=== PATIENT | female | born 1935 | race Caucasian/White ===

== ENCOUNTER → 2018-11-29 09:26 | Outpatient (CLI) | payer MEDICARE, BC | END | disposition home or self-care (01) | LOC: D.CT 09:26 | PROVIDERS: ATTEND Internal Medicine Interventional Cardiology | DX: I65.23 Occlusion and stenosis of bilateral carotid arteries (principal); I70.213 Atherosclerosis of native arteries of extremities with intermittent claudication, bilateral legs ==

== ENCOUNTER → 2018-12-02 08:45 | Outpatient (CLI) | payer MEDICARE, BC | END | disposition home or self-care (01) | LOC: D.CT 08:45 | PROVIDERS: ATTEND Internal Medicine Interventional Cardiology | DX: I65.23 Occlusion and stenosis of bilateral carotid arteries (principal); I70.213 Atherosclerosis of native arteries of extremities with intermittent claudication, bilateral legs; I73.9 Peripheral vascular disease, unspecified ==

== ENCOUNTER 2019-05-15 06:47 | Emergency (ER) | payer MEDICARE, BC ==
[~2019-05-15] VITALS: Ht 162.6 cm; Wt 78.2 kg
[2019-05-15 06:52] VITALS: Ht 162.6 cm; Wt 78.2 kg
[2019-05-15] MEDS ORDERED: DIPHENHIST25 MG PO (06:54)
[2019-05-15] MEDS ORDERED: TENORMIN25 MG PO (06:54)
[2019-05-15] MEDS ORDERED: FLUTICASONE PRO16 GM NASAL (06:55)
[2019-05-15] MEDS ORDERED: COZAAR100 MG PO (06:55)
[2019-05-15] MEDS ORDERED: DONEPEZIL HCL5 MG PO (06:55)
[2019-05-15] MEDS ORDERED: FISH OIL 1,0001 CA1 PO (06:55)
[2019-05-15] MEDS ORDERED: KRILL OIL 1,001 EAC1 PO (06:55)
[2019-05-15] MEDS ORDERED: LOVASTATIN40 MG PO (06:56)
[2019-05-15] MEDS ORDERED: MOBIC7.5 MG PO (06:56)
[2019-05-15] MEDS ORDERED: FOLIC ACID1 MG PO (06:57)
[2019-05-15] MEDS ORDERED: OSTEO BI-FLEX1 EAC1 PO (06:57)
[2019-05-15] MEDS ORDERED: OMEPRAZOLE40 MG PO (06:57)
[2019-05-15] MEDS ORDERED: MULTI-DAY VITAM1 TAB PO (06:57)
[2019-05-15] MEDS ORDERED: VITAMIN E1000 UNI1 PO (06:58)
[2019-05-15] MEDS ORDERED: OXYBUTYNIN CHLOR5 M1 PO (06:58)
[2019-05-15] MEDS ORDERED: EFFEXOR100 MG PO (06:58)
[2019-05-15] MEDS ORDERED: TYLENOL W/CODEI1 TAB PO (06:59)
[2019-05-15] MEDS ORDERED: MELATONIN10 M1 PO (06:59)
[2019-05-15] MEDS ORDERED: ADVIL200 MG PO (06:59)
[2019-05-15] MEDS ORDERED: ATARAX 25 MG TA25 MG PO (07:00)
[2019-05-15] MEDS ORDERED: ULTRAM50 MG PO (07:00)
[2019-05-15 07:37] LABS: APPEARANCE SL CLDY (CLEAR); BACTERIA FEW /hpf (NEGATIVE); BILIRUBIN NEGATIVE (NEGATIVE); COLOR YELLOW (YELLOW); GLUCOSE NEGATIVE (NEGATIVE); KETONE NEGATIVE (NEGATIVE); MUCUS <1+ /lpf (NONE SEEN); NITRITE NEGATIVE (NEGATIVE); PROTEIN NEGATIVE (NEGATIVE); RED CELLS - URINE 0-5 /hpf (0-5); SPECIFIC GRAVITY 1.015 (1.005-1.020); UROBILINOGEN NORMAL (NORMAL); WHITE CELLS - URINE 0-5 /hpf (NEGATIVE)
[2019-05-15] MEDS ORDERED: OMNICEF300 MG PO (08:42)
[2019-05-15 09:21] VITALS: BP 132/78
== END 2019-05-15 09:11 | disposition home or self-care (01) ==
LOC: D.ER 06:47
PROVIDERS: Family Medicine
DX: N39.0 Urinary tract infection, site not specified (principal); W19.XXXA Unspecified fall, initial encounter; I10 Essential (primary) hypertension; E78.5 Hyperlipidemia, unspecified; K21.9 Gastro-esophageal reflux disease without esophagitis

== ENCOUNTER 2019-07-20 15:03 | Inpatient (IN) | payer MEDICARE, BC ==
[~2019-07-20] VITALS: Ht 162.6 cm; Wt 81.9 kg
[~2019-07-20 15:03] MED LIST: ADVIL200 MG PO; ATARAX 25 MG TA25 MG PO; COZAAR100 MG PO; DIPHENHIST25 MG PO; DONEPEZIL HCL5 MG PO; EFFEXOR100 MG PO; FISH OIL 1,0001 CA1 PO; FLUTICASONE PRO16 GM NASAL; FOLIC ACID1 MG PO; KRILL OIL 1,001 EAC1 PO; LOVASTATIN40 MG PO; MELATONIN10 M1 PO; MOBIC7.5 MG PO; MULTI-DAY VITAM1 TAB PO; OMEPRAZOLE40 MG PO; OMNICEF300 MG PO; OSTEO BI-FLEX1 EAC1 PO; OXYBUTYNIN CHLOR5 M1 PO; TENORMIN25 MG PO; TYLENOL W/CODEI1 TAB PO; ULTRAM50 MG PO; VITAMIN E1000 UNI1 PO
[2019-07-20 15:34] LABS: BASOPHILS 0.1 % (0-2); EOSINOPHILS 1.2 % (0-7); HEMATOCRIT 35.5 % (36.0-48.0); HEMOGLOBIN 9.7 g/dL (12-16); IMMATURE GRANULOCYTES 0.3 % (0-5); LYMPHOCYTES 17.9 % (15-50); MCH 22.2 pg (26.0-34.0); MCHC 27.3 g/dL (31.0-37.0); MCV 81.2 fL (80.0-100.0); MONOCYTES 10.9 % (2-11); NEUTROPHILS 69.6 % (40-80); PLATELET COUNT 285 10x3/uL (130-400); RBC 4.37 10x6/uL (4.00-5.40); RDW 17.2 % (11.5-14.5); WBC 7.6 10x3/uL (4.8-10.8)
[2019-07-20 15:43] LABS: APTT 26.8 SECONDS (22.8-39.4); INR 1.12 (0.85-1.17); PROTIME 14.3 SECONDS (11.6-15.0)
[2019-07-20 15:47] LABS: CALC OSMOLALITY 296 mosm/kg (275-300); CALCIUM 8.8 mg/dL (8.5-10.1); CARBON DIOXIDE 33.3 mmol/L (21.0-32.0); CHLORIDE - SERUM 108 mmol/L (98-107); CREATININE - SERUM 1.1 mg/dL (0.6-1.3); GLUCOSE 90 mg/dL (74-106); POTASSIUM - SERUM 4.3 mmol/L (3.5-5.1); SODIUM 146 mmol/L (136-145); UREA NITROGEN 29 mg/dL (7-18); eGFR NON AFRICAN AMERICAN 50 mL/min (90-120)
[2019-07-20 16:01] LABS: ALBUMIN 2.9 g/dL (3.4-5.0); ALKALINE PHOSPHATASE 51 U/L (30-120); ALT (SGPT) 21 U/L (10-68); BILIRUBIN - TOTAL 0.43 mg/dL (0.2-1.3); CKMB 3.3 U/L (0.0-3.6); CREATINE KINASE 63 UL (21-215); PROTEIN - SERUM 6.6 g/dL (6.4-8.2); TROPONIN-I 0.033 ng/mL (0.000-0.060)
[2019-07-20 16:06] VITALS: BP 190/85
[2019-07-20 17:36] VITALS: BP 152/61; BMI 29.2
[2019-07-20 18:20] LABS: BILIRUBIN NEGATIVE (NEGATIVE); GLUCOSE NEGATIVE (NEGATIVE); KETONE NEGATIVE (NEGATIVE); NITRITE NEGATIVE (NEGATIVE); UROBILINOGEN NORMAL (NORMAL)
[2019-07-21] VITALS: BP 151/70
[2019-07-21] MEDS ORDERED: GABAPENTIN100 MG PO (01:54)
[2019-07-21] MEDS ORDERED: TESSALON PERLE100 MG PO (01:55)
[2019-07-21] MEDS ORDERED: ZYRTEC10 MG PO (01:56)
[2019-07-21] MEDS ORDERED: MUCINEX DM ER1 EAC1 PO (01:56)
[2019-07-21] MEDS ORDERED: TYLENOL #4 W/CO1 TAB PO (01:57)
[2019-07-21 04:00] VITALS: BP 146/52
[2019-07-21 04:58] LABS: BASOPHILS 0.1 % (0-2); EOSINOPHILS 1.5 % (0-7); HEMATOCRIT 33.6 % (36.0-48.0); HEMOGLOBIN 9.2 g/dL (12-16); LYMPHOCYTES 19.2 % (15-50); MCH 22.1 pg (26.0-34.0); MCHC 27.4 g/dL (31.0-37.0); MCV 80.6 fL (80.0-100.0); MEAN PLATELET VOLUME 9.1 fL (7.4-10.4); MONOCYTES 12.9 % (2-11); NEUTROPHILS 66.3 % (40-80); PLATELET COUNT 260 10x3/uL (130-400); RBC 4.17 10x6/uL (4.00-5.40); RDW 17.7 % (11.5-14.5); WBC 7.6 10x3/uL (4.8-10.8)
[2019-07-21 05:09] LABS: % SATURATION 3 % (15-55); IRON 15 ug/dl (35-150); TOTAL IRON BIND CAPACITY 386 ug/dl (260-445); UNSAT IRON BIND CAPACITY 371 ug/dl (150-375)
[2019-07-21 05:33] LABS: ANION GAP 8.9 mmol/L (8-16); CALCIUM 8.5 mg/dL (8.5-10.1); CHOL - HDL RATIO 3.2 ratio (2.3-4.1); CREATININE - SERUM 1.1 mg/dL (0.6-1.3); LDL-HDL RATIO 1.7 ratio (1.5-3.5); MAGNESIUM - SERUM 1.8 mg/dL (1.8-2.4); PHOSPHOROUS 4.9 mg/dL (2.5-4.9); POTASSIUM - SERUM 3.9 mmol/L (3.5-5.1)
[2019-07-21 09:29] VITALS: BP 149/60
[2019-07-21 12:22] VITALS: Ht 162.6 cm; Wt 81.9 kg
[2019-07-21 13:51] VITALS: BP 147/56
[2019-07-21 17:52] VITALS: BP 170/84
--- NOTE | 2019-07-21 19:03 | MORECARE ---
CASE MANAGEMENT DISCHARGE SUMMARY PATIENT: ADÁN SUAREZ UNIT: [id number] ADM DATE: 07/20/19 AGE: 84 : 37 SEX: F ROOM/BED: D.2202 AUTHOR: ELVER TURPIN PHYSICIAN: REFERRING PHYSICIAN: LIZ MCKENNA MD DATE OF SERVICE: 07/21/19 Discharge Plan Patient Name: ADÁN SUAREZ [facility] [facility] 1935 Planned Disposition: Anticipated Discharge Date: Discharge Date: Expected LOS: Initial Reviewer: [email or web address] Initial Review Date: 07/20/2019 Generated: 07/21/19 8:02 pm DCPIA - Discharge Planning Initial Assessment Updated by [email or web address]: Angelia Hernandez on 07/21/19 7:01 pm * Is the patient Alert and Oriented? Yes * How many steps to enter\exit or inside your home? * PCP DUPREE * Pharmacy [facility] * Preadmission Environment Assisted Living * Facility Name [facility] * ADLs Independent * Equipment Walker * List name and contact numbers for known caregivers / representatives who currently or will assist patient after discharge: ELIU CHOPRA - SON - [phone] DENNIS LUBIN -DAUGHTER - [phone] * Verbal permission to speak to the caregivers and representatives has been obtained from the patient. Yes * Additional services required to return to the preadmission environment? No * Can the patient safely return to the preadmission environment? Yes * Has this patient been hospitalized within the prior 30 days at any hospital? No Patient Name: ADÁN SUAREZ Page 41215 at 1903 All edits/amendments must be made on the electronic document DICTATION DATE: 07/21/191901 BRASS INSTRUMENT REPAIR TECHNICIAN: DEE 07/21/191901 RPT#: [id number] DC DATE: STATUS: ADM IN [facility] [address] [place] [address] END OF REPORT
--- NOTE | 2019-07-21 19:34 | MORECARE ---
CASE MANAGEMENT DISCHARGE SUMMARY PATIENT: ADÁN SUAREZ UNIT: [id number] ADM DATE: 07/20/19 AGE: 84 : 37 SEX: F ROOM/BED: D.2202 AUTHOR: DYANA,DOC PHYSICIAN: REFERRING PHYSICIAN: LIZ MCKENNA MD DATE OF SERVICE: 07/21/19 Discharge Plan Patient Name: ADÁN SUAREZ Facility: [facility]:[place] : 1935 Planned Disposition: Anticipated Discharge Date: Discharge Date: Expected LOS: Initial Reviewer: [email or web address] Initial Review Date: 07/20/2019 Generated: 07/21/19 8:34 pm Comments DCP- Discharge Planning Updated by [email or web address]: Angelia Hernandez on 07/21/19 6:[address] Patient Name: ADÁN SUAREZ Admission Status: ER Accout number: [id number] Admission Date: 07-20-2019 : 1935 Admission Diagnosis: Attending: LIZ MCKENNA Current LOS: 1 Anticipated DC Date: Planned Disposition: Primary Insurance: MEDICARE A & B Discharge Planning Comments: CM met with patient to complete initial dc planning assessment. CM educated patient on the CM role and verbal consent given by patient to complete assessment. Patient lives at [facility] assisted living. At discharge patient plans to return back to [facility] and feels this is a safe discharge. CM discussed availability of home health, rehab services, and medical equipment. Patient denied known discharge needs at this time. Patient isn't accepting to inpatient rehab at this time but states she needs someone to work with her daily CM will continue to follow and will assist as needed with dc plans/needs. Paramedic: Angelia Hernandez DCPIA - Discharge Planning Initial Assessment Updated by [email or web address]: Angelia Hernandez on 07/21/19 7:01 pm * Is the patient Alert and Oriented? Yes * How many steps to enter\exit or inside your home? * PCP DUPREE * Pharmacy [facility] * Preadmission Environment Assisted Living * Facility Name [facility] * ADLs Independent * Equipment Walker * List name and contact numbers for known caregivers / representatives who currently or will assist patient after discharge: ELIU CHOPRA - SON - [phone] DENNIS HO - [phone] * Verbal permission to speak to the caregivers and representatives has been obtained from the patient. Yes * Additional services required to return to the preadmission environment? No * Can the patient safely return to the preadmission environment? Yes * Has this patient been hospitalized within the prior 30 days at any hospital? No Last DP export: 07/21/19 6:03 p Patient Name: ADÁN SUAREZ Page [phone] at 1934 All edits/amendments must be made on the electronic document DICTATION DATE: 07/21/191933 REAL ESTATE ACCOUNTANT: DEE 07/21/191933 RPT#: [id number] DC DATE: STATUS: ADM IN [facility] [address] [place] [address] END OF REPORT
[2019-07-21 20:00] VITALS: BP 118/42
[2019-07-22] VITALS: BP 163/49
[2019-07-22 04:00] VITALS: BP 130/70
[2019-07-22 06:45] LABS: BASOPHILS 0.1 % (0-2); EOSINOPHILS 1.5 % (0-7); IMMATURE GRANULOCYTES 0.1 % (0-5); LYMPHOCYTES 17.2 % (15-50); MCH 21.7 pg (26.0-34.0); MCHC 27.3 g/dL (31.0-37.0); MCV 79.7 fL (80.0-100.0); MEAN PLATELET VOLUME 8.9 fL (7.4-10.4); MONOCYTES 13.4 % (2-11); NEUTROPHILS 67.7 % (40-80); PLATELET COUNT 244 10x3/uL (130-400); RBC 4.14 10x6/uL (4.00-5.40); RDW 17.5 % (11.5-14.5); WBC 8.1 10x3/uL (4.8-10.8)
[2019-07-22 07:06] LABS: ANION GAP 7.8 mmol/L (8-16); CALCIUM 8.2 mg/dL (8.5-10.1); CARBON DIOXIDE 38.7 mmol/L (21.0-32.0); CREATININE - SERUM 0.9 mg/dL (0.6-1.3); MAGNESIUM - SERUM 1.6 mg/dL (1.8-2.4); PHOSPHOROUS 3.9 mg/dL (2.5-4.9); POTASSIUM - SERUM 3.5 mmol/L (3.5-5.1)
[2019-07-22 08:24] VITALS: BP 140/56
[2019-07-22 12:54] VITALS: BP 139/66
[2019-07-22 16:47] VITALS: BP 91/58
[2019-07-22 20:32] VITALS: BP 143/67
[2019-07-23 03:53] VITALS: BP 148/68
[2019-07-23 05:57] LABS: BASOPHILS 0.1 % (0-2); EOSINOPHILS 2.8 % (0-7); HEMATOCRIT 36.1 % (36.0-48.0); HEMOGLOBIN 9.7 g/dL (12-16); IMMATURE GRANULOCYTES 0.2 % (0-5); LYMPHOCYTES 14.3 % (15-50); MCH 21.7 pg (26.0-34.0); MCHC 26.9 g/dL (31.0-37.0); MCV 80.8 fL (80.0-100.0); MEAN PLATELET VOLUME 9.5 fL (7.4-10.4); MONOCYTES 12.2 % (2-11); NEUTROPHILS 70.4 % (40-80); PLATELET COUNT 283 10x3/uL (130-400); RBC 4.47 10x6/uL (4.00-5.40); RDW 17.5 % (11.5-14.5); WBC 8.3 10x3/uL (4.8-10.8)
[2019-07-23 06:11] LABS: ANION GAP 7.5 mmol/L (8-16); CALCIUM 8.4 mg/dL (8.5-10.1); CREATININE - SERUM 0.9 mg/dL (0.6-1.3); MAGNESIUM - SERUM 1.5 mg/dL (1.8-2.4); PHOSPHOROUS 3.4 mg/dL (2.5-4.9)
[2019-07-23 06:16] LABS: CARBON DIOXIDE 41.5 mmol/L (21.0-32.0)
[2019-07-23 08:33] VITALS: BP 164/69
[2019-07-23] MEDS ORDERED: LEVAQUIN750 MG PO (08:36)
[2019-07-23] MEDS ORDERED: PLAVIX75 MG PO (08:37)
--- NOTE | 2019-07-23 17:43 | EC ---
PATIENT:ADÁN SUAREZ DATE OF SERVICE: 07/20/19 SEX: F MEDICAL RECORD: [id number] DATE OF : 39 LOCATION:D.MS [address] AGE OF PATIENT: 84 ADMISSION DATE: 07/20/19 REFERRING PHYSICIAN: INTERPRETING PHYSICIAN: LIANNA HYDE MD ECHOCARDIOGRAM REPORT ECHO CHARGES 4 ECHO COMPLETE Date: 07/22/19 CLINICAL DIAGNOSIS: HTN/SOB/FLUID OVERLAD/ ISCHEMIC CVA ECHOCARDIOGRAPHIC MEASUREMENTS (adult normal given) AC root (d.<3.7cm) 3.0 cm LV Septum d (<1.2 cm> 1.2 cm Valve Excursion 1.8 cm LV Septum (systole) 1.6 cm Left Atria (s.<4.0cm> 4.3 cm LVPW d(<1.2cm) 1.3 cm RV (d.<2.3cm) 2.5 cm LVPW (sytole) 1.9 cm LV diastole(<5.6CM) 5.5 cm MV E-F(>70mm/sec) cm LV systole 3.4 cm LVOT Diameter 1.9 cm MV exc.(>10mm) cm Est.ejection fraction (50-75%) % DOPPLER: LVIT cm/sec A 65.0 cm/sec E 124 cm/sec LA cm/sec RVSP 58.0 mmHg LVOT 94.0 cm/sec AOP1/2T m/s Asc. Ao 183 cm/sec RVOT 62.0 cm/sec RA cm/sec PA 98.0 cm/sec AV Gradient Peak 13.4 mmHg AV Mean 7.2 mmHg AV Area 1.2 cm MV Gradient Peak 7.1 mmHg MV Mean 2.1 mmHg MV Area cm COMMENTS: Leather Scraper: June MORRIS [place] Lumber Cutter: 4 Dr. Hyde TAPE# PACS Pericardial Effusion N DATE OF SERVICE: 07/22/2019 PROCEDURE: Echocardiogram. FINDINGS: Left ventricle shows mild left ventricular hypertrophy, which is concentric. The ejection fraction is preserved at 55%. Left atrium is mildly dilated. Mitral valve shows normal structure with moderate regurgitation. Aortic valve is normal. ECHOCARDIOGRAM REPORT [id number] ADÁN SUAREZ Tricuspid valve has moderate tricuspid regurgitation. There is mildly elevated right ventricular systolic pressures at 58 mmHg. Right ventricle, normal size and normal function. Right atrium is mildly enlarged. Pulmonic valve is grossly normal. Pericardium is normal. IMPRESSION: The patient has evidence of mild hypertensive heart disease. The patient has moderate tricuspid and mitral regurgitation. No evidence of significant thrombus. TRANSINT:[id number] Voice Confirmation ID: [id number] DOCUMENT ID: [id number] LIANNA HYDE MD at 1743 CC: [id number] DICTATION DATE: 07/23/[address] MANAGER: 07/23/19 1332 DIS IN 07/23/19 [id number] [place] [address]
--- NOTE | 2019-07-24 09:15 | MORECARE ---
CASE MANAGEMENT DISCHARGE SUMMARY PATIENT: ADÁN SUAREZ UNIT: [id number] ADM DATE: 07/20/19 AGE: 84 : 37 SEX: F ROOM/BED: D.2202 AUTHOR: DYANA,DOC PHYSICIAN: REFERRING PHYSICIAN: LIZ MCKENNA MD DATE OF SERVICE: 07/24/19 Discharge Plan Patient Name: ADÁN SUAREZ Facility: [facility]:[place] : 1935 Planned Disposition: Anticipated Discharge Date: Discharge Date: 07/23/2019 Expected LOS: Initial Reviewer: [email or web address] Initial Review Date: 07/20/2019 Generated: 07/24/19 10:14 am Comments DCP- Discharge Planning Updated by [id number]: Angelia Hernandez on 07/21/19 6:[address] Patient Name: ADÁN SUAREZ Admission Status: ER Accout number: [id number] Admission Date: 07-20-2019 : 1935 Admission Diagnosis: Attending: LIZ MCKENNA Current LOS: 1 Anticipated DC Date: Planned Disposition: Primary Insurance: MEDICARE A & B Discharge Planning Comments: CM met with patient to complete initial dc planning assessment. CM educated patient on the CM role and verbal consent given by patient to complete assessment. Patient lives at [facility] assisted living. At discharge patient plans to return back to [facility] and feels this is a safe discharge. CM discussed availability of home health, rehab services, and medical equipment. Patient denied known discharge needs at this time. Patient isn't accepting to inpatient rehab at this time but states she needs someone to work with her daily CM will continue to follow and will assist as needed with dc plans/needs. Database Marketing Manager: Angelia Hernandez DCPIA - Discharge Planning Initial Assessment Updated by [email or web address]: Angelia Hernandez on 07/21/19 7:01 pm * Is the patient Alert and Oriented? Yes * How many steps to enter\exit or inside your home? * PCP DUPREE * Pharmacy [facility] * Preadmission Environment Assisted Living * Facility Name [facility] * ADLs Independent * Equipment Walker * List name and contact numbers for known caregivers / representatives who currently or will assist patient after discharge: ELIU CHOPRA - SON - [phone] DENNIS HO - [phone] * Verbal permission to speak to the caregivers and representatives has been obtained from the patient. Yes * Additional services required to return to the preadmission environment? No * Can the patient safely return to the preadmission environment? Yes * Has this patient been hospitalized within the prior 30 days at any hospital? No Last DP export: 07/21/19 6:34 p Patient Name: ADÁN SUAREZ Page [id number] at 0915 All edits/amendments must be made on the electronic document DICTATION DATE: 07/24/19913 CEMENTER MACHINE JOINER: DEE 07/24/19913 RPT#: [id number] DC DATE:07/23/19 STATUS: DIS IN [facility] [address] [place] [address] END OF REPORT
== END 2019-07-23 13:30 | DRG 177 ==
LOC: D.ER 15:03 → D.MS 16:11
PROVIDERS: Emergency Medicine; ADMIT Internal Medicine Nephrology; ATTEND Internal Medicine Nephrology
DX: J69.0 Pneumonitis due to inhalation of food and vomit (principal); I63.9 Cerebral infarction, unspecified; G93.41 Metabolic encephalopathy; N17.9 Acute kidney failure, unspecified; E87.0 Hyperosmolality and hypernatremia; F17.203 Nicotine dependence unspecified, with withdrawal; D64.9 Anemia, unspecified; I10 Essential (primary) hypertension; E78.5 Hyperlipidemia, unspecified; K21.9 Gastro-esophageal reflux disease without esophagitis; F03.90 Unspecified dementia, unspecified severity, without behavioral disturbance, psychotic disturbance, mood disturbance, and anxiety; G89.29 Other chronic pain; M54.9 Dorsalgia, unspecified

== ENCOUNTER 2019-07-23 14:10 | Inpatient (IN) | payer MEDICARE, BC ==
[~2019-07-23] VITALS: Ht 162.6 cm; Wt 81.6 kg
[~2019-07-23 14:10] MED LIST changes: +GABAPENTIN100 MG PO; +LEVAQUIN750 MG PO; +MUCINEX DM ER1 EAC1 PO; +PLAVIX75 MG PO; +TESSALON PERLE100 MG PO; +TYLENOL #4 W/CO1 TAB PO; +ZYRTEC10 MG PO
[2019-07-23 14:41] VITALS: BP 125/55; BMI 30.9
--- NOTE | 2019-07-23 17:28 | NUR ---
SITTING IN WC IN ROOM TALKING ON PHONE TO BROTHER. IS NOT HAPPY MORE PEOPLE HAS NOT BEEN IN HER ROOM SINCE ADMISSION. TRIED TO EXPLAIN TO PT SHE HAD BEEN SEEN BY STAFF BUT WE WERE NOT ABLE TO STAY WITH HER ALL THE TIME
--- NOTE | 2019-07-23 18:50 | NUR ---
BEDSIDE REPORT COMPLETE. PT SITTING UP IN W/C AT BEDSIDE. ALERT AND ORIENTED X4. DENIES ANY NEEDS OR PAIN. RIGHT FOREARM IV PATENT NO REDNESS OR SWELLING AT SITE. DRESSING C/D/I. 3L O2 ORDERED PT REFUSES TO WEAR AT THIS TIME. BUE BRUISING. LEFT SIDE FACIAL DROOPING. CALL LIGHT AND WATER WITHIN REACH. FALL PRECAUTIONS IN PLACE. WILL CONTINUE TO MONITOR
[2019-07-23 20:00] VITALS: BP 141/60
--- NOTE | 2019-07-24 00:45 | NUR ---
PT LYING IN BED SUPINE. HOB ELEVATED. CONTINUES ON 3L VIA NC. CALL LIGHT WITHIN REACH. BED ALARM ON. CPOC
--- NOTE | 2019-07-24 04:19 | NUR ---
PT LYING IN BED EYES CLOSED. HOB ELEVATED. CALL LIGHT AND WATER WITHIN REACH. BED ALARM ON. CPOC
[2019-07-24 05:47] LABS: BASOPHILS 0.1 % (0-2); EOSINOPHILS 1.8 % (0-7); HEMATOCRIT 36.3 % (36.0-48.0); HEMOGLOBIN 9.6 g/dL (12-16); IMMATURE GRANULOCYTES 0.2 % (0-5); LYMPHOCYTES 17.8 % (15-50); MCH 21.4 pg (26.0-34.0); MCHC 26.4 g/dL (31.0-37.0); MEAN PLATELET VOLUME 9.4 fL (7.4-10.4); MONOCYTES 12.2 % (2-11); NEUTROPHILS 67.9 % (40-80); PLATELET COUNT 270 10x3/uL (130-400); RBC 4.48 10x6/uL (4.00-5.40); RDW 17.3 % (11.5-14.5); WBC 8.4 10x3/uL (4.8-10.8)
[2019-07-24 05:48] LABS: CALCIUM 8.7 mg/dL (8.5-10.1); CREATININE - SERUM 0.8 mg/dL (0.6-1.3)
[2019-07-24 05:58] LABS: ANION GAP 3.4 mmol/L (8-16); POTASSIUM - SERUM 3.5 mmol/L (3.5-5.1)
[2019-07-24 05:59] LABS: CARBON DIOXIDE 42.1 mmol/L (21.0-32.0)
--- NOTE | 2019-07-24 05:59 | NUR ---
MAHESH FROM LAB CALLED CRITICAL CO2 42.1. CALLED BACK AND VERIFIED.
[2019-07-24 08:20] VITALS: BP 148/64
[2019-07-24 13:21] VITALS: Ht 162.6 cm; Wt 81.6 kg
--- NOTE | 2019-07-24 19:30 | NUR ---
PT IS RESTING IN BED WITH EYES OPEN. ALERT AND ORIENTED X 3. DENIES ACUTE PAIN OR DISCOMFORT AT THIS TIME. NO NEED VOICED. NO SOB NOTED. RFA SALINE LOCK INTACT. SR'S ARE UP X 2 IN BED. CALL LIGHT AND BEDSIDE TABLE ARE WITHIN EASY REACH.
[2019-07-24 19:49] VITALS: BP 140/57
--- NOTE | 2019-07-24 21:49 | NUR ---
PT IS RESTING IN BED WITH EYES OPEN. NO NEEDS VOICED.
--- NOTE | 2019-07-25 02:46 | NUR ---
I have reviewed this patient and I concur with the Shift Assessment completed by the Licensed Practical Nurse today this shift.
--- NOTE | 2019-07-25 07:33 | NUR ---
I have reviewed this patient and I concur with the Shift Assessment completed by the Licensed Practical Nurse today this shift.
[2019-07-25 08:00] VITALS: BP 128/50
--- NOTE | 2019-07-25 15:16 | NUR ---
PATIENT ADMITTED TO REHAB FROM ACUTE FLOOR. PATIENT LIVES AT THE [facility]. HER PCP IS DR. DUPREE AND DME AT HOME IS A WALKER. DISCHARGE PLANS ARE FOR HER TO RETURN TO HER HOME. WILL CONTINUE TO FOLLOW WITH PATIENT.
--- NOTE | 2019-07-25 16:34 | NUR ---
RESTING WITH EYES CLOSED. RESP EVEN AND UNLABORED WITH 02 ON PER N/C AT 3L/M. NO APPARENT PROBLEMS OR NEEDS NOTED. SIDERAILS UP X 2, CALL LIGHT IN REACH AND BED IN LOW LOCKED POSITION. WILL CONTINUE POC
--- NOTE | 2019-07-25 19:10 | NUR ---
AWAKE AND ALERT. RESTING IN BED WITH RESPIRAITONS UNLABORED. O2/3L ON PER NASAL CANNULA. RIGHT FOREARM SALINE LOCK INTACT WITH NO SIGNS OF INFILTRATION. NOTED SLIGHT DROOPING TO LEFT SIDE OF MOUTH. SPEECH SLIGHTLY SLUREED. ORIENTED AND MOVES EXTREMITIES ON COMMAND. NO ACUTE DISTRESS NOTED. CALL LIGHT IN REACH.
[2019-07-25 19:33] VITALS: BP 131/57
--- NOTE | 2019-07-25 22:55 | NUR ---
RESTING IN BED WITH EYES CLOSED AND RESPIRATIONS UNLABORED. NO DISTRESS NOTED. CALL LIGHT IN REACH.
--- NOTE | 2019-07-26 02:06 | NUR ---
CONTINUES SLEEPING WITH RESPIRATIONS UNLABORED. NO DISTRESS NOTED.
--- NOTE | 2019-07-26 05:09 | NUR ---
ASSISTED TO BATHROOM AND BACK TO BED. RESPIRATIONS UNLABORED. NO DISTRESS NOTED. NO ACUTE CHANGES IN CONDITION THIS SHIFT.
--- NOTE | 2019-07-26 06:19 | NUR ---
NOTED COUGHING AND C/O CHEST CONGESTION. COARSE LUNG SOUNDS BILATERALLY. CHEST X RAY ORDERED. WILL CONTINUE TO MONITOR.
[2019-07-26 07:35] VITALS: BP 137/48
--- NOTE | 2019-07-26 09:15 | NUR ---
PT AM MEDS ADMINSITERED. PT MARCIAL NEEDS. WCTM.
--- NOTE | 2019-07-26 13:50 | NUR ---
CARE TEAM MEETING: PATIENT IS NEW TO UNIT AND WILL BE RA AT NEXT MEETING. WILL CONTINUE TO FOLLOW WITH PATIENT.
--- NOTE | 2019-07-26 18:38 | NUR ---
BEDSIDE REPORT COMPLETE. ASSISTED PT TO RESTROOM WITH MIN ASSIST. ALERT AND ORIENTED X4. DENIES ANY OTHER NEEDS OR PAIN. INSTRUCTED PT TO USES NURSE CALL CORD WHEN FINISHED. PT VERBALIZED UNDERSTANDING. CPOC
--- NOTE | 2019-07-26 18:43 | NUR ---
ASSISTED PT BACK TO BED WITH SBA. RIGHT FOREARM SL WITHOUT REDNESS OR SWELLING. DRESSING C/D/I. CONTINUES ON 3L VIA NC. CALL LIGHT AND WATER WITHIN REACH. BED ALARM ON. CPOC
[2019-07-26 21:30] VITALS: BP 128/52
--- NOTE | 2019-07-26 23:14 | NUR ---
PT LYING IN BED SUPINE EYES CLOSED RESTING COMFORTABLY. HOB ELEVATED. CONTINUES ON 3L VIA NC. RR EVEN AND UNLABORED. CALL LIGHT WITHIN REACH. BED ALARM ON. CPOC
--- NOTE | 2019-07-27 03:14 | NUR ---
PT LYING IN BED EYES CLOSED RESTING COMFORTABLY. HOB ELEVATED. RR EVEN AND UNLABORED. CONTINUES ON 3L VIA NC. CALL LIGHT WITHIN REACH. BED ALARM ON. CPOC
[2019-07-27 07:58] VITALS: BP 160/63
--- NOTE | 2019-07-27 08:25 | NUR ---
PT AM MEDS ADMINISTERED. PT DENIES NEEDS. WCTM.
--- NOTE | 2019-07-27 12:26 | NUR ---
Nutrition Follow-up: Overall good PO intake per chart review. Diet: Cardiac, Mech Soft PO intake: 75-100% No new wt; last wt: 180# (07/23) Last BM: 07/26 per chart No new labs Meds reviewed -Encourage PO intake and honor food preferences within diet restrictions. -Offer nutrition supplements if avg PO intake <50%. -Monitor wt. -RD following.
--- NOTE | 2019-07-27 14:43 | NUR ---
IV TO RT FA DC'D CATH TIP IN TACT.
--- NOTE | 2019-07-27 18:45 | NUR ---
BEDSIDE REPORT COMPLETE. PT SITTING UP IN BED AWAKE AND ALERT. DENIES ANY NEEDS OR PAIN. CONTINUES ON 3L VIA NC. CALL LIGHT WITHIN REACH. BED ALARM ON. CPOC
[2019-07-27 21:00] VITALS: BP 158/66
--- NOTE | 2019-07-28 00:19 | NUR ---
PT LYING IN BED EYES CLOSED RESTING. HOB ELEVATED. RR EVEN AND UNLABORED. CALL LIGHT WITHIN REACH. BED ALARM ON. CPOC
--- NOTE | 2019-07-28 03:05 | NUR ---
ASSISTED PT TO RESTROOM AND BACK TO BED WITH SBA. DENIES ANY OTHER NEEDS OR PAIN. CALL LIGHT WITHIN REACH. BED ALARM ON . CPOC
[2019-07-28 06:10] LABS: HEMATOCRIT 35.5 % (36.0-48.0); HEMOGLOBIN 9.8 g/dL (12-16); LYMPHOCYTES 22.5 % (15-50); MCH 21.7 pg (26.0-34.0); MCHC 27.6 g/dL (31.0-37.0); MCV 78.5 fL (80.0-100.0); MEAN PLATELET VOLUME 9.3 fL (7.4-10.4); NEUTROPHILS 68.5 % (40-80); PLATELET COUNT 233 10x3/uL (130-400); RBC 4.52 10x6/uL (4.00-5.40); RDW 17.1 % (11.5-14.5); WBC 7.7 10x3/uL (4.8-10.8)
[2019-07-28 06:16] LABS: ANION GAP 5.8 mmol/L (8-16); CALCIUM 8.4 mg/dL (8.5-10.1); CARBON DIOXIDE 37.9 mmol/L (21.0-32.0); CREATININE - SERUM 0.9 mg/dL (0.6-1.3); POTASSIUM - SERUM 3.7 mmol/L (3.5-5.1)
[2019-07-28 07:38] VITALS: BP 162/63
--- NOTE | 2019-07-28 08:00 | NUR ---
PT RESTING IN BED WITH EYES OPEN CALL LIGHT IN REACH EATING BREAKFAST TOLERATING WELL
--- NOTE | 2019-07-28 15:09 | NUR ---
PT RESTING IN BED WITH EYES OPEN CALL LIGHT IN REACH WILL MONITER
--- NOTE | 2019-07-28 20:04 | NUR ---
AWAKE AND ALERT. ASSISTED TO BATHROOM AND BACK TO BED. RESPIRAITONS UNLABORED. NO ACUTE DISTRESS NOTED. NOTED SLURRED SPEECH AND MILD LEFT SIDED WEAKNESS. MOVES ALL EXTREMITIES ON COMMAND. MINIMAL ASSIST FOR TRANSFERS.
[2019-07-28 21:45] VITALS: BP 151/73
--- NOTE | 2019-07-29 02:07 | NUR ---
CONTINUES SLEEPING WITH NO DISTRESS NOTED. CALL LIGHT IN REACH.
--- NOTE | 2019-07-29 04:49 | NUR ---
QUIET HOURS. NO ACUTE CHANGES IN CONDITION THIS SHIFT. RESTING IN BED WITH NO DISTRESS NOTED. CALL LIGHT IN REACH.
[2019-07-29 08:00] VITALS: BP 148/58
--- NOTE | 2019-07-29 09:34 | NUR ---
PT AM MEDS ADMINISTERED. PT DENIES NEEDS. WCTM.
--- NOTE | 2019-07-29 18:27 | NUR ---
PT RESTING IN BED, DENIES NEEDS. WCTM.
[2019-07-29 19:36] VITALS: BP 155/65
--- NOTE | 2019-07-29 19:43 | NUR ---
AWAKE AND ALERT. ASSISTED TO BATHROOM AND BACK TO BED. HAD A LARGE LOOSE BM. RESPIRATIONS UNLABORED. SPEECH SLIGHTLY SLURRED. MOVES ALL EXTREMITIES ON COMMAND. SLIGHT FACIAL DROOPING ON LEFT SIDE OF FACE. NO ACUTE DISTRESS NOTED.
--- NOTE | 2019-07-29 23:20 | NUR ---
REPOSITIONED FOR COMFORT. O2/3L ON PER NASAL CANNULA. NO ACUTE DISTRESS NOTED.
--- NOTE | 2019-07-30 01:06 | NUR ---
ASSISTED TO BATHROOM AND BACK TO BED. O2/2L ON PER NASAL CANNULA. COUGHING AT INTERVALS. C/O BEING HOT. FAN AND COOL DRINK PROVIDED. NOW RESTING WITH FAN ON HER AND SHE STATES SHE FEELS BETTER.
--- NOTE | 2019-07-30 04:30 | NUR ---
PATIENT C/O SHORTNESS OF BREATH. DIMINISHED LUNG SOUNDS. O2 SATURATRION 88% ON O2/3L NC. ASSISTED TO SIT UP AND DEEP BREATHE AND COUGH. INCENTIVE SPIROMETER DONE. RESPIRATORY THERAPIST MARIANO CALLED AND ASSESSED PATIENT. HE STATED SHE IS MOVING AIR WELL. O2 SATURATION WENT UP TO 96%. HEAD OF BED RAISED AND O2 ON. WILL CONTINUE TO MONITOR.
--- NOTE | 2019-07-30 05:17 | NUR ---
RESTING WITH EYES CLOSED AND RESPIRATIONS UNLABORED ON O2/3L PER NASAL CANNULA. O2 SATURATION 96%.
[2019-07-30 08:00] VITALS: BP 176/76
--- NOTE | 2019-07-30 09:29 | NUR ---
PT AM MEDS ADMINISTERED. PT DENIES NEEDS. WCTM.
--- NOTE | 2019-07-30 20:06 | NUR ---
ASSISTED TO BATHROOM AND BACK TO BED. IV ANTIBIOTICS STARTED ORDERED. O2/3L ON PER NASAL CANNULA. HEAD OF BED ELEVATED. CONTINUES TO HAVE SLURRED SPEECH AND MILD LEFT SIDED WEAKNESS. CALL LIGHT IN REACH.
[2019-07-30 20:33] VITALS: BP 171/81
--- NOTE | 2019-07-31 02:13 | NUR ---
AWAKE AND SITTING ON SIDE OF BED. O2 ON. NOT SLEPT MUCH. UP TO BATHROOM NUMEROUS TIMES. WILL CONTINUE TO MONITOR.
--- NOTE | 2019-07-31 04:30 | NUR ---
CXR DONE. ABG'S DONE. RESPIRATORY THERPIST HERE AND INCREASED O2 TO 5L/NC AND ADDED WATER BOTTLE TO OXYGEN. WILL CONTINUE TO MONITOR.
--- NOTE | 2019-07-31 05:17 | NUR ---
RESTING WITH O2/5L ON PER NASAL CANNULA. CALL LIGHT IN REACH.
[2019-07-31 06:16] LABS: BASOPHILS 0.1 % (0-2); HEMATOCRIT 36.4 % (36.0-48.0); HEMOGLOBIN 9.6 g/dL (12-16); IMMATURE GRANULOCYTES 0.2 % (0-5); LYMPHOCYTES 17.2 % (15-50); MCHC 26.4 g/dL (31.0-37.0); MCV 79.5 fL (80.0-100.0); MEAN PLATELET VOLUME 9.6 fL (7.4-10.4); MONOCYTES 8.7 % (2-11); NEUTROPHILS 72.8 % (40-80); PLATELET COUNT 224 10x3/uL (130-400); RBC 4.58 10x6/uL (4.00-5.40); RDW 17.6 % (11.5-14.5); WBC 8.1 10x3/uL (4.8-10.8)
[2019-07-31 06:32] LABS: ANION GAP 5.2 mmol/L (8-16); CALCIUM 8.8 mg/dL (8.5-10.1); CREATININE - SERUM 0.8 mg/dL (0.6-1.3); POTASSIUM - SERUM 4.2 mmol/L (3.5-5.1)
[2019-07-31 07:54] VITALS: BP 166/66
--- NOTE | 2019-07-31 08:00 | NUR ---
PATIENT IS ALERT/ORIENT. SLURRED SPEECH. CALL LIGHT WITHIN REACH. VOICES NO NEEDS AT THIS TIME. WILL CONTINUE WITH PLAN OF CARE
--- NOTE | 2019-07-31 13:36 | NUR ---
PATIENT IN REHAB ROOM. WORKING WITH PHYSICAL THERAPIST. DENIES ANY PAIN/DISC AT THIS TIME.
--- NOTE | 2019-07-31 18:50 | NUR ---
BEDSIDE REPORT COMPLETE. PT LYING IN BED EYES CLOSED RESTING. HOB ELEVATED. CONTINUES ON 5L VIA NC. HUMIDIFIED AIR. EASILY AROUSED WITH VERBAL STIMULI. DENIES ANY NEEDS OR PAIN. RIGHT FOREARM IV WITHOUT REDNESS OR SWELLING. PT STATES SITE IS TENDER. WILL CONTINUE TO MONITOR. DRESSING C/D/I. CALL LIGHT AND NECTAR THICKENED WATER WITHIN REACH. BED ALARM ON. CPOC
[2019-07-31 21:00] VITALS: BP 136/72
--- NOTE | 2019-08-01 01:13 | NUR ---
PT LYING IN BED EYES CLOSED RESTING COMFORTABLY. CONTINUES ON 5L VIA NC. RR EVEN AND UNLABORED. CALL LIGHT WITHIN REACH. BED ALARM ON. CPOC
--- NOTE | 2019-08-01 04:00 | NUR ---
ASSISTED TO RESTROOM AND BACK TO BED WITH MIN ASSIST. DENIES ANY OTHER NEEDS OR PAIN. CONTINUES ON 5L VIA NC. CALL LIGHT AND WATER WITHIN REACH. BED ALARM ON. [facility]
[2019-08-01 09:56] VITALS: BP 161/68
--- NOTE | 2019-08-01 10:25 | NUR ---
PT AM MEDS ADMINISTERED. PT DENIES NEEDS. WCTM.
--- NOTE | 2019-08-01 12:59 | NUR ---
Nutrition follow-up: Diet: Regular mechanical soft PO intake ~60% average of last 12 meals Labs reviewed; SOB at times +BM No new wt; last wt: 180# PO intake fair to good at meals. RDN following.
--- NOTE | 2019-08-01 14:45 | NUR ---
SPOKE WITH PATIENTS FAMILY AND ELIU CHOPRA IS PATIENTS POA. HE WOULD LIKE A REFERRAL TO [facility] IF PATIENT IS UNABLE TO RETURN TO THE [facility]. WILL CALL MR. CHOPRA AT TEAM CONFERENCE.
--- NOTE | 2019-08-01 18:50 | NUR ---
BEDSIDE REPORT COMPLETE. PT LYING IN BED AWAKE AND ALERT. DENIES ANY NEEDS OR PAIN. CONTINUES ON 5L VIA NC. RIGHT HAND IV WITHOUT REDNESS OR SWELLING. DRESSING C/D/I. CALL LIGHT AND WATER WITHIN REACH. BED ALARM ON. CPOC
[2019-08-01 20:45] VITALS: BP 163/61
--- NOTE | 2019-08-02 00:13 | NUR ---
PT LYING IN BED EYES CLOSED RESTING. HOB ELEVATED. CONTINUES ON 5L VIA NC. RR EVEN AND UNLABORED. CALL LIGHT WITHIN REACH. BED ALARM ON. CPOC
--- NOTE | 2019-08-02 01:41 | NUR ---
ASSISTED PT TO RESTROOM WITH MIN ASSIST. PT INSTRUCTED TO USE NURSE PULL CORD IN BATHROOM WHEN FINISHED. PT VERBALIZED UNDERSTANDING.
--- NOTE | 2019-08-02 03:30 | NUR ---
ASSISTED PT TO RESTROOM AND BACK TO BED WITH MIN ASSIST. CONTINUES ON 5L VIA NC. CALL LIGHT AND HYDRATION WITHIN REACH. BED ALARM ON. CPOC
--- NOTE | 2019-08-02 06:39 | NUR ---
PT SITTING UP IN BED EYES CLOSED RESTING. HOB ELEVATED. RR EVEN AND UNLABORED. CALL LIGHT WITHIN REACH. BED ALARM ON. CPOC
[2019-08-02 07:10] LABS: BASOPHILS 0.1 % (0-2); EOSINOPHILS 2.5 % (0-7); HEMATOCRIT 33.8 % (36.0-48.0); IMMATURE GRANULOCYTES 0.1 % (0-5); LYMPHOCYTES 15.9 % (15-50); MCH 21.1 pg (26.0-34.0); MCHC 26.6 g/dL (31.0-37.0); MCV 79.2 fL (80.0-100.0); MEAN PLATELET VOLUME 9.5 fL (7.4-10.4); MONOCYTES 10.6 % (2-11); NEUTROPHILS 70.8 % (40-80); PLATELET COUNT 226 10x3/uL (130-400); RBC 4.27 10x6/uL (4.00-5.40); WBC 7.5 10x3/uL (4.8-10.8)
[2019-08-02 07:25] LABS: ANION GAP 9.2 mmol/L (8-16); CALCIUM 8.5 mg/dL (8.5-10.1); CARBON DIOXIDE 34.9 mmol/L (21.0-32.0); CREATININE - SERUM 0.8 mg/dL (0.6-1.3); POTASSIUM - SERUM 4.1 mmol/L (3.5-5.1)
[2019-08-02 08:56] VITALS: BP 152/54
--- NOTE | 2019-08-02 11:22 | NUR ---
UPON ARRIVAL THIS MORNING PATIENT WAS SLEEPING. BREATHING NORMALLY. SHE WAS SAT UP IN A CHAIR TO EAT HER BREAKFAST. PATIENT IS ALERT AND ORIENTED. SHE WENT TO THE GYM FOR PHYSICAL THERAPY. DENIES NEEDS.
--- NOTE | 2019-08-02 12:55 | NUR ---
PATIENT ASKED TO GET BACK IN BED AFTER EATING HER LUNCH. DENIES NEEDS. NO S/S OF DISTRESS. WILL CONTINUE TO MONITOR. CRISTOPHER
--- NOTE | 2019-08-02 14:06 | NUR ---
PATIENT LYING IN BED RESTING. BREATHING EQUAL AND UNLABORED. THIS MORNING DR. CABRAL WANTED HER WEANED DOWN FROM HER OXYGEN LEVEL OF 5 AND TO KEEP O2 >96%. PATIENT PUT ON 2L PER DR. CABRAL. O2 87% ON 2 LITERS. OXYGEN INCREASED TO 3L. 30 MINS LATER, O2 READS 92%. OXYGEN INCREASED TO 3.2 LITERS AND READING 93%. OXYGEN CURRENTLY AT 4LITERS. WILL CONTINUE TO MONITOR OXYGEN SATURATION. KDAJALIL
--- NOTE | 2019-08-02 15:29 | NUR ---
CARE TEAM MEETING: DID PHONE CONFERENCE WITH PATIENT FAMILY. FAMILY REQUEST THAT A REFERRAL BE MADE TO [facility]. AT THIS TIME PATIENT IS UNABLE TO SAFELY RETURN TO HER HOME. WILL CONTINUE TO FOLLOW WITH PATIENT.
[2019-08-02 19:46] VITALS: BP 179/72
--- NOTE | 2019-08-02 19:52 | NUR ---
AWAKE AND ALERT. RESTING IN BED WITH NO RESPIRATORY DISTRESS NOTED. O2/4L ON PER NASAL CANNULA. MILD SLURRED SPEECH. NO DISTRESS NOTED.
--- NOTE | 2019-08-03 01:40 | NUR ---
SLEEPING WITH NO DISTRESS NOTED.
--- NOTE | 2019-08-03 06:19 | NUR ---
HASNT SLEPT A LOT TONIGHT. UP AND DOWN TO BATHROOM NUMEROUS TIMES. O2/4L ON PER NASAL CANNULA. NO ACUTE DISTRESS NOTED.
--- NOTE | 2019-08-03 08:00 | NUR ---
PATIENT IS ALERT/ORIENT. CALL LIGHT WITHIN REACH. VOICES NO NEEDS AT THIS TIME. WILL CONTINUE WITH PLAN OF CARE
[2019-08-03 08:18] VITALS: BP 161/60
--- NOTE | 2019-08-03 09:30 | NUR ---
SALINE LOCK OUT. NEW SALINE LOCK INSERTED IN LEFT WRIST
--- NOTE | 2019-08-03 10:10 | NUR ---
PATIENT HELPED WITH SHOWER FROM NURSE
--- NOTE | 2019-08-03 11:00 | NUR ---
I have reviewed this patient and I concur with the Shift Assessment completed by the Licensed Practical Nurse today this shift.
--- NOTE | 2019-08-03 13:28 | NUR ---
PATIENT IS A MIN ASST FROM BED TO WHEELCHAIR. HAS STRESS INCON. WEARS BRIEFS
[2019-08-03 17:08] LABS: IMMUNOGLOBULIN E 65 IU/mL (6-495)
[2019-08-03 19:31] VITALS: BP 184/60
--- NOTE | 2019-08-03 19:37 | NUR ---
AWAKE AND ALERT. SITTING IN WHEELCHAIR IN ROOM EATING SNACK. RESPIRATIONS UNLABORED AT REST. O2/4L ON PER NASAL CANNULA. CALL LIGHT IN REACH.
--- NOTE | 2019-08-03 22:29 | NUR ---
IV SITE WAS INFILATRATED AT 2100 AND I ATTEMPTED TO RESTART IT. PATIENT SCREAMED AND JERKED HER ARM AND REFUSED TO LET ME RESTART IT. I DID EDUCATION ON IMPORTANCE OF ANTIBIOTICS AND SHE YELLED AND SAID "I DONT CARE ITS NOT WORTH THE PAIN." I LEFT HER ALONE ABOUT AN HOUR AND ANOTHER NURSE CAME IN AND PATIENT AGREED TO ALLOW HER TO RESTART IV. IV RESITED TO LEFT UPPER ARM WITH 24G IV CATH. ANTIBIOTICS INFUSING.
--- NOTE | 2019-08-04 01:10 | NUR ---
AWAKE AND WATCHING TV. RESPIRAITONS UNLABORED. SALINE LOCK TO LEFT UPPER ARM INTACT.
--- NOTE | 2019-08-04 04:58 | NUR ---
RESTING IN BED AFTER BEING ASSISTED TO BATHROOM. O2/4L ON PER NASAL CANNULA. SALINE LOCK TO LEFT UPPER ARM INTACT. NO ACUTE DISTRESS NOTED.
[2019-08-04 05:51] LABS: BASOPHILS 0.3 % (0-2); EOSINOPHILS 2.3 % (0-7); HEMATOCRIT 36.9 % (36.0-48.0); HEMOGLOBIN 9.9 g/dL (12-16); IMMATURE GRANULOCYTES 0.3 % (0-5); LYMPHOCYTES 12.6 % (15-50); MCH 21.1 pg (26.0-34.0); MCHC 26.8 g/dL (31.0-37.0); MCV 78.7 fL (80.0-100.0); MEAN PLATELET VOLUME 9.1 fL (7.4-10.4); MONOCYTES 7.6 % (2-11); NEUTROPHILS 76.9 % (40-80); PLATELET COUNT 250 10x3/uL (130-400); RBC 4.69 10x6/uL (4.00-5.40); RDW 18.2 % (11.5-14.5); WBC 9.1 10x3/uL (4.8-10.8)
[2019-08-04 06:00] LABS: CALCIUM 8.6 mg/dL (8.5-10.1); CARBON DIOXIDE 34.8 mmol/L (21.0-32.0); CREATININE - SERUM 0.8 mg/dL (0.6-1.3); POTASSIUM - SERUM 3.8 mmol/L (3.5-5.1)
[2019-08-04 08:00] VITALS: BP 187/74
--- NOTE | 2019-08-04 14:12 | RHP ---
PATIENT: ADÁN SUAREZ MEDICAL RECORD: [id number] ACCOUNT: [id number] [facility] ADMISSION DATE: 07/23/19 REHABILITATION HISTORY AND PHYSICAL EXAMINATION POST ADMISSION PHYSICIAN EXAMINATION ADMITTING DIAGNOSES: Acute ischemic lacunar infarct in the right posterior frontal lobe. HISTORY OF PRESENT ILLNESS: The patient is an 84-year-old female patient who resides at the [facility], has got a history of hypertension, dyslipidemia, dementia, depression, osteoarthritis, chronic back pain. Apparently, she was having some difficulty with speech prior to coming to the hospital. She additionally had a brief episode of nausea. She had left-sided facial droop and loss of her nasolabial folds with a smile on the left side. She was able to follow commands and had no deficits really in her extremities. Her speech was slurred, but understandable. She apparently continues to smoke. An MRI of her head was done. There was an acute ischemic lacunar infarct in the right posterior frontal lobe involving the glover radiata without evidence of hemorrhagic conversion. The patient was admitted to the acute hospital. The patient also had a little bit of elevation of D-dimer. Ultrasound of her extremities showed no evidence of DVT. She has been receiving OT, speech therapy, and physical therapy during her stay. She needs to be monitored closely for aspiration precautions. She has been seen by speech therapy. She has left-sided weakness, left-sided facial droop. She got some slurred speech, balance deficits, decreased activity tolerance, decreased range of motion, decreased strength, gait disturbance, limited safety awareness. She has got a risk for falls. She fatigues easily. She has got inability to care for self. These are all barriers to her discharge home at this time. She lives at the [facility] and was living in her own apartment, was completely independent with ADLs and mobility prior to this. She is currently set up for mod assist for ADLs and mod assist for mobility. She and her family would like her to return back to her apartment at the [facility] after a stay here in the rehabilitation. COMORBIDITIES: Include oropharyngeal dysphagia, dysarthric speech, acute metabolic encephalopathy, CVA, depression, anxiety, chronic back pain, tobacco use, nicotine dependence, hypertension, electrolyte abnormalities, pneumonia and anemia. PAST MEDICAL HISTORY: Significant for CVA, dyslipidemia, gastroesophageal reflux disease, depression, dementia, tobacco use, chronic back pain. PAST SURGICAL HISTORY: Includes back surgery. She had a hysterectomy, colon surgery, and shoulder surgery. ALLERGIES: No known drug allergies. CURRENT MEDICATIONS: Include Floranex 1 cap daily. She is on lisinopril 10 mg daily, clonidine 0.1 mg daily, Zithromax 500 daily, amlodipine 10 mg daily, Omnicef 300 mg b.i.d. She is on Brovana 15 mcg b.i.d., budesonide 0.5 mg b.i.d., low resistance sliding scale of insulin, and albuterol updrafts. HABITS: Does have a history of tobacco use. FAMILY HISTORY: Noncontributory. HISTORY AND PHYSICAL [id number] ADÁN SUAREZ SOCIAL HISTORY: The patient hopes to return back home to her [facility]. REVIEW OF SYSTEMS: GENERAL: Does complain of weakness, mainly on the left. HEENT: Denies cold, cough, or congestion. CARDIOVASCULAR: Denies chest pain. PHYSICAL EXAMINATION: VITAL SIGNS: Stable, afebrile. GENERAL: A morbidly obese female, in no distress upon exam. HEENT: Normocephalic and atraumatic. Mucosa moist. NECK: Supple. No lymphadenopathy. LUNGS: Clear in upper oliveros. No wheeze or rales. HEART: Regular rate and rhythm. No murmurs, rubs or gallops. ABDOMEN: Soft, benign, and nondistended. Positive bowel sounds times 4. EXTREMITIES: She does have noted weakness on her left side, but no clubbing, cyanosis or edema. NEUROLOGIC: Consistent with a CVA involving the right side of her head lab work has shown some mild elevations in her blood sugar. LABORATORY DATA: Her white count is 3.0, H&H of 11 and 35, and platelet count was noted to be 169. Her electrolytes are pending at this time other than sugars. ASSESSMENT: This is an 84-year-old female patient admitted to rehab with a working diagnosis an acute ischemic lacunar infarct involving the right posterior lobe. The patient has potential to make improvement. We instituted the following multidisciplinary therapies include, but not limited to physical, occupational, respiratory, speech, nutritional services, prosthetics and orthotics. Given her complex medical conditions and risks for more complications, rehabilitation services cannot be provided at a low level of care such as skilled nurse facility. PLAN: 1. Admit to [facility] for intensive inpatient therapy to include the following disciplines: A. Physical therapy to improve gait, all transfer skills and bed mobility to a modified independent level. B. Occupational therapy to improve activities of living. C. Case management to assist with discharge planning and placement options. D. Nutrition to assist with nutritional needs. E. Rehabilitation nursing to assist in monitoring the patient's underlying medical conditions and to assist with any type of bowel or bladder management. 2. The patient's current medication and medical care will be continued. 3. The patient will be placed on standard fall precautions. 4. The patient's estimated length of stay is approximately 7-10 days. 5. We will discuss this patient during care team staff meeting this week. TRANSINT:[id number] Voice Confirmation ID: [id number] DOCUMENT ID: [id number] TALIA notes whether there has been none or any medical/functional change since admission: - No change since preadmission screen. HISTORY AND PHYSICAL [id number] ADÁN SUAREZ attests patient continues to be appropriate for IRF: - Continues to be approprite. ABDIRAHMAN ZELAYA MD at 1412 CC: [id number] DICTATION DATE: 07/24/19 0858 ITINERANT TEACHER ASSISTANT: 07/24/19 0927 ADM IN [facility] [address] [place] [address]
--- NOTE | 2019-08-04 14:20 | NUR ---
REFERRAL HAS BEEN FAXED TO [facility] PER FAMILY REQUEST
--- NOTE | 2019-08-04 16:14 | NUR ---
PT RESTING IN BED WITH EYES OPEN CALL LIGHT IN REACH WILL MONITER
--- NOTE | 2019-08-04 17:45 | NUR ---
PT RESTING IN BED WITH EYES OPEN CALL LIGHT IN REACH WILL MONITER
--- NOTE | 2019-08-04 18:47 | NUR ---
BEDSIDE REPORT COMPLETE. PT SITTING UP IN BED ALERT AND ORIENTED X3. DENIES ANY NEEDS OR PAIN. CONTINUES ON 4L VIA NC. NO SIGNS OF ACUTE DISTRESS NOTED. LEFT FOREARM IV DC WITH CATH TIP INTACT D/T INFILTRATION. CALL LIGHT WITHIN REACH. BED ALARM ON. CPOC
[2019-08-04 20:46] VITALS: BP 150/71
--- NOTE | 2019-08-04 21:32 | NUR ---
PT REFUSED TO ALLOW RN TO RESITE IV, STATES THAT SHE RATHER FIND ALTERNATIVE TREATMENT HAS BEEN RESITED SEVERAL TIMES DURING HER ABX THERAPY.
--- NOTE | 2019-08-04 23:31 | NUR ---
PT LYING IN BED EYES CLOSED RESTING COMFORTABLY. HOB ELEVATED. RR EVEN AND UNLABORED. CONTINUES ON 4L VIA NC. CALL LIGHT WITHIN REACH. BED ALARM ON. CPOC
--- NOTE | 2019-08-05 03:00 | NUR ---
ASSISTED PT TO RESTROOM AND BACK TO BED WITH MIN ASSIST. DENIES ANY NEEDS OR PAIN. RR EVEN AND UNLABORED. CONTINUES ON 4L VIA NC. CALL LIGHT WITHIN REACH. BED ALARM ON. CPOC
[2019-08-05 08:00] VITALS: BP 160/74
--- NOTE | 2019-08-05 08:15 | NUR ---
PT SITTING UP IN WHEELCHAIR EATING BREAKFAST, DENIES NEEDS. WCTM.
--- NOTE | 2019-08-05 18:47 | NUR ---
BEDSIDE REPORT COMPLETE. PT LYING IN BED EYES CLOSED RESTING. HOB ELEVATED. CONTINUES ON 4L VIA NC. RR EVEN AND UNLABORED. CALL LIGHT AND WATER WITHIN REACH. BED ALARM ON. CPOC
[2019-08-05 19:42] VITALS: BP 167/69
--- NOTE | 2019-08-05 22:41 | NUR ---
PT SITTING UP IN BED WATCHING TV. DENIES ANY NEEDS OR PAIN. RR EVEN AND UNLABORED. CALL LIGHT AND WATER WITHIN REACH. BED ALARM ON. CPOC
--- NOTE | 2019-08-06 02:53 | NUR ---
PT LYING IN BED EYES CLOSED RESTING. HOB ELEVATED. RR EVEN AND UNLABORED. CONTINUES ON 4L VIA NC. CALL LIGHT WITHIN REACH. BED ALARM ON. CPOC
--- NOTE | 2019-08-06 03:27 | NUR ---
ASSISTED PT TO RESTROOM AND BACK TO BED WITH MIN ASSIST. CALL LIGHT AND WATER WITHIN REACH. BED ALARM ON. CPOC
[2019-08-06 15:45] VITALS: BP 149/63
[2019-08-06 19:50] VITALS: BP 137/92
--- NOTE | 2019-08-06 22:35 | NUR ---
INITIAL ROUNDS COMPLETED AT 1915 HRS. PT DENIED ANY DISCOMFORT. ASSESSMENT COMPLETED AT 1950 HRS. VSS. ALERT AND ORIENTED TO PERSON, PLACE AND TIME. FELIZ. O2 4LNC. LUNGS DIMINISHED IN BASES BILAT. SPEECH SLIGHTLY SLURRED. PT STATES UPPER R THIGH NUMB. BRUISES NOTED TO BILAT ARMS. TINY SCABS NOTED UNDER LOWER LIP. PM MEDS GIVEN. PT ASSISTED TO BR VIA W/C. VOIDED LARGE AMOUNT OF YELLOW URINE. BACK TO BED VIA W/C. PT WHEEZING AFTER EXERTION. PT CURRENTLY PLAYING ON PHONE. NO AUDIBLE WHEEZES NOTED. SR UP X2, CALL LIT WITHIN REACH, HOB UP AND BED ALARM ON.
--- NOTE | 2019-08-07 00:20 | NUR ---
RESTING WITH EYES CLOSED OM R SIDE. NO DISTRESS NOTED. CALL LIGHT WITHIN REACH.
--- NOTE | 2019-08-07 01:35 | NUR ---
ASSISTED PT TO BR AT 0120 HRS. VOIDED LARGE AMOUNT OF URINE AND HAD SMALL BM. ASSISTED BACK TO BED VIA W/C. PT SOB WITH ACTIVITY.
--- NOTE | 2019-08-07 02:10 | NUR ---
WATCHING TV. NO DISTRESS NOTED.
--- NOTE | 2019-08-07 04:51 | NUR ---
PT RESTING WITH EYES CLOSED. RESP EVEN AND REGULAR. SR UP X2, CALL LIGHT WITHIN REACH.
[2019-08-07 05:18] LABS: BASOPHILS 0.2 % (0-2); EOSINOPHILS 2.8 % (0-7); HEMOGLOBIN 9.6 g/dL (12-16); IMMATURE GRANULOCYTES 0.1 % (0-5); MCHC 26.7 g/dL (31.0-37.0); MCV 78.6 fL (80.0-100.0); MEAN PLATELET VOLUME 9.6 fL (7.4-10.4); MONOCYTES 7.8 % (2-11); NEUTROPHILS 67.1 % (40-80); PLATELET COUNT 288 10x3/uL (130-400); RBC 4.58 10x6/uL (4.00-5.40); RDW 18.5 % (11.5-14.5); WBC 8.2 10x3/uL (4.8-10.8)
[2019-08-07 05:26] LABS: ANION GAP 8.9 mmol/L (8-16); CALCIUM 8.6 mg/dL (8.5-10.1); CARBON DIOXIDE 35.3 mmol/L (21.0-32.0); CREATININE - SERUM 0.8 mg/dL (0.6-1.3); POTASSIUM - SERUM 4.2 mmol/L (3.5-5.1)
--- NOTE | 2019-08-07 06:21 | NUR ---
PT UP TO BATHROOM VIA W/C X4 DURING SHIFT. PT SOB WITH EXERTION. PT CURRENTLY SITTING ON SIDE OF BED. NO DISTRESS NOTED. WILL CONTINUE TO MONITOR.
--- NOTE | 2019-08-07 07:25 | NUR ---
RESTING POSITIONED ON BACK WITH EYES CLOSED. RESP EVEN AND UNLABORED WITH 02 ON PER N/C AT 4L/M. SIDERAILS UP X 2, CALL LIGHT IN REACH AND BED IN LOW, LOCKED POSITION. WILL CONTINUE POC.
[2019-08-07 08:10] VITALS: BP 186/66
--- NOTE | 2019-08-07 18:43 | NUR ---
BEDSIDE REPORT COMPLETE. PT SITTING UP IN BED WATCHING TV. ALERT AND ORIENTED X4. SLURRED SPEECH. CONTINUES ON 4L HUMIDIFIED VIA NC. DENIES ANY NEEDS OR PAIN. NO SIGNS OF ACUTE DISTRESS NOTED. CALL LIGHT AND WATER WITHIN REACH. BED ALARM ON. CPOC
[2019-08-07 20:11] VITALS: BP 169/49
--- NOTE | 2019-08-07 23:27 | NUR ---
PT LYING IN BED AWAKE AND ALERT. HOB ELEVATED. DENIES ANY NEEDS OR PAIN. NO SIGNS OF ACUTE DISTRESS NOTED. CALL LIGHT WITHIN REACH. BED ALARM ON. CPOC
--- NOTE | 2019-08-08 04:00 | NUR ---
PT LYING IN BED AWAKE AND ALERT. DENIES ANY NEEDS. C/O 2/10 ACHING PAIN IN RIGHT HIP/LEG. CALL LIGHT AND WATER WITHIN REACH. BED ALARM ON. CPOC
--- NOTE | 2019-08-08 06:40 | NUR ---
PT SITTING UP ON SIDE OF BED EATING SNACK. DENIES ANY OTHER NEEDS OR PAIN. RR EVEN AND UNLABORED. CALL LIGHT WITHIN REACH. BED ALARM ON. CPOC
[2019-08-08 08:57] VITALS: BP 109/91
--- NOTE | 2019-08-08 10:28 | NUR ---
PATIENT DISCHARGING TO [facility] VIA FACILITY VAN. NO HOME HEALTH OR DME NEEDED AT THIS TIME. AN APPOINTMENT WITH DR. DUPREE AND DR. WALL WILL BE MADE AT TIME OF DISCHARGE FROM FACILITY. DR. WESTFALL ORDER FAXED TO SNF REGARDING NEBULIZER AND O2. PATIENT CHOICE FORM AND IMFM FORMS SIGNED, EXPLAINED,ONE GIVEN TO PATIENT AND ONE FILED IN CHART. DISCHARGE INSTRUCTIONS FAXED TO PCP, SNF AND REVIEWED WITH PATIENT PER PRIMARY NURSE.
--- NOTE | 2019-08-08 14:40 | NUR ---
PT DISCHARGE INSTRUCTIONS REV'D AND PT STATES UNDERSTANDING. [facility]PL[facility] DEVELOPMENT DIRECTOR HERE TO RECEIVE PT. PT DISCHARGED.
== END 2019-08-08 14:41 | DRG 56 ==
LOC: D.REHAB 14:10
PROVIDERS: Internal Medicine Pulmonary Disease; ADMIT Emergency Medicine; ATTEND Emergency Medicine
DX: I69.30 Unspecified sequelae of cerebral infarction (principal); G93.41 Metabolic encephalopathy; J18.9 Pneumonia, unspecified organism; J96.01 Acute respiratory failure with hypoxia; J98.11 Atelectasis; J44.1 Chronic obstructive pulmonary disease with (acute) exacerbation; J44.0 Chronic obstructive pulmonary disease with (acute) lower respiratory infection; F17.203 Nicotine dependence unspecified, with withdrawal; R13.12 Dysphagia, oropharyngeal phase; R47.1 Dysarthria and anarthria; F17.200 Nicotine dependence, unspecified, uncomplicated; I10 Essential (primary) hypertension; E87.8 Other disorders of electrolyte and fluid balance, not elsewhere classified; F41.8 Other specified anxiety disorders; G89.29 Other chronic pain; E78.5 Hyperlipidemia, unspecified; I27.20 Pulmonary hypertension, unspecified; J30.9 Allergic rhinitis, unspecified; F03.90 Unspecified dementia, unspecified severity, without behavioral disturbance, psychotic disturbance, mood disturbance, and anxiety

== ENCOUNTER 2019-09-27 18:27 | Inpatient (IN) | payer MEDICARE, BC ==
[~2019-09-27] VITALS: Ht 162.6 cm; Wt 73.4 kg
[2019-09-27] MEDS ORDERED: BUMEX2 MG PO (18:40)
[2019-09-27] MEDS ORDERED: FERROUS SULFAT325 MG PO (18:42)
[2019-09-27] MEDS ORDERED: COZAAR100 MG PO (18:44)
[2019-09-27] MEDS ORDERED: NICODERM CQ1 EAC3 TOPICAL (18:45)
[2019-09-27] MEDS ORDERED: K-TAB10 MEQ PO (18:46)
[2019-09-27] MEDS ORDERED: EFFEXOR25 MG PO (18:48)
[2019-09-27] MEDS ORDERED: ASCORBIC ACID500 MG PO (18:49)
[2019-09-27] MEDS ORDERED: VITAMIN D1000 UNIT PO (18:50)
[2019-09-27] MEDS ORDERED: COLACE100 MG PO (18:52)
[2019-09-27] MEDS ORDERED: INDERAL 40 MG T40 MG PO (18:55)
[2019-09-27] MEDS ORDERED: ATIVAN0.5 MG PO (18:55)
[2019-09-27] MEDS ORDERED: GABAPENTIN100 MG PO (18:57)
--- NOTE | 2019-09-27 19:10 | NUR ---
TRAUMA BAND [id number]
--- NOTE | 2019-09-27 20:00 | NUR ---
C-COLLAR PLACED ON PT PER EDP ORDERS.
[2019-09-27 20:38] LABS: BASOPHILS 0.1 % (0-2); EOSINOPHILS 2.1 % (0-7); HEMATOCRIT 36.6 % (36.0-48.0); HEMOGLOBIN 9.8 g/dL (12-16); IMMATURE GRANULOCYTES 0.2 % (0-5); LYMPHOCYTES 16.8 % (15-50); MCH 20.7 pg (26.0-34.0); MCHC 26.8 g/dL (31.0-37.0); MCV 77.2 fL (80.0-100.0); MEAN PLATELET VOLUME 10.1 fL (7.4-10.4); MONOCYTES 7.6 % (2-11); NEUTROPHILS 73.2 % (40-80); RBC 4.74 10x6/uL (4.00-5.40); RDW 18.9 % (11.5-14.5); WBC 9.8 10x3/uL (4.8-10.8)
[2019-09-27 20:39] LABS: PLATELET COUNT 205 10x3/uL (130-400)
[2019-09-27 20:55] LABS: BILIRUBIN NEGATIVE (NEGATIVE); GLUCOSE NEGATIVE (NEGATIVE); KETONE NEGATIVE (NEGATIVE); NITRITE NEGATIVE (NEGATIVE); UROBILINOGEN NORMAL (NORMAL)
--- NOTE | 2019-09-27 20:55 | NUR ---
JUAN FROM [facility] AND BRACE AT PT'S BEDSIDE TO PLACE C COLLAR ON PT.
[2019-09-27 20:56] LABS: WHITE CELLS - URINE 0-5 /hpf (NEGATIVE)
[2019-09-27 20:57] LABS: BACTERIA FEW /hpf (NEGATIVE); EPITHELIAL CELLS 0-5 /hpf (0-5); RED CELLS - URINE OCC /hpf (0-5)
--- NOTE | 2019-09-27 21:13 | NUR ---
SPOKE WITH DEMETRIUS FROM [facility] PT IS FROM AND INFORMED HER OF PT CURRENT STATUS.
[2019-09-27 21:17] LABS: ALBUMIN 2.6 g/dL (3.4-5.0); ALKALINE PHOSPHATASE 37 U/L (30-120); ALT (SGPT) 14 U/L (10-68); BILIRUBIN - TOTAL 0.32 mg/dL (0.2-1.3); CALC OSMOLALITY 289 mosm/kg (275-300); CALCIUM 8.7 mg/dL (8.5-10.1); CHLORIDE - SERUM 103 mmol/L (98-107); CKMB 0.9 U/L (0.0-3.6); CREATINE KINASE 33 UL (21-215); CREATININE - SERUM 0.8 mg/dL (0.6-1.3); GLUCOSE 79 mg/dL (74-106); POTASSIUM - SERUM 3.3 mmol/L (3.5-5.1); PROTEIN - SERUM 5.9 g/dL (6.4-8.2); SODIUM 145 mmol/L (136-145); UREA NITROGEN 18 mg/dL (7-18); eGFR NON AFRICAN AMERICAN 73 mL/min (90-120)
[2019-09-27 21:23] LABS: TROPONIN-I < 0.017 ng/mL (0.000-0.060)
[2019-09-27] MEDS ORDERED: EFFEXOR100 MG PO (23:08)
[2019-09-27] MEDS ORDERED: NAPROSYN500 MG PO (23:09)
[2019-09-28] VITALS: BP 176/76
[2019-09-28 00:47] VITALS: BMI 29.7
[2019-09-28 04:00] VITALS: BP 167/71
--- NOTE | 2019-09-28 04:17 | NUR ---
I have reviewed this patient and I concur with the Shift Assessment completed by the Licensed Practical Nurse today this shift.
[2019-09-28 06:55] LABS: BASOPHILS 0.2 % (0-2); EOSINOPHILS 3.3 % (0-7); HEMATOCRIT 35.1 % (36.0-48.0); HEMOGLOBIN 9.4 g/dL (12-16); IMMATURE GRANULOCYTES 0.1 % (0-5); MCH 20.5 pg (26.0-34.0); MCHC 26.8 g/dL (31.0-37.0); MCV 76.5 fL (80.0-100.0); MONOCYTES 9.3 % (2-11); NEUTROPHILS 67.1 % (40-80); PLATELET COUNT 224 10x3/uL (130-400); RBC 4.59 10x6/uL (4.00-5.40); WBC 8.3 10x3/uL (4.8-10.8)
[2019-09-28 07:06] LABS: ALBUMIN 2.4 g/dL (3.4-5.0); ALKALINE PHOSPHATASE 37 U/L (30-120); ALT (SGPT) 14 U/L (10-68); BILIRUBIN - TOTAL 0.39 mg/dL (0.2-1.3); CALC OSMOLALITY 284 mosm/kg (275-300); CALCIUM 8.7 mg/dL (8.5-10.1); CHLORIDE - SERUM 103 mmol/L (98-107); CREATININE - SERUM 0.8 mg/dL (0.6-1.3); GLUCOSE 78 mg/dL (74-106); POTASSIUM - SERUM 3.2 mmol/L (3.5-5.1); PROTEIN - SERUM 6.3 g/dL (6.4-8.2); SODIUM 143 mmol/L (136-145); UREA NITROGEN 16 mg/dL (7-18); eGFR NON AFRICAN AMERICAN 73 mL/min (90-120)
[2019-09-28 07:14] LABS: CARBON DIOXIDE 40.6 mmol/L (21.0-32.0); TROPONIN-I < 0.017 ng/mL (0.000-0.060)
[2019-09-28 09:28] VITALS: BP 174/80
--- NOTE | 2019-09-28 10:00 | NUR ---
PATIENT SITTING ON SIDE OF BED EATING. CL IN REACH. BED ALARM ON. CO OF PAIN 7 OUT OF 10 ON PAIN SCALE. TREATED PER EMAR. WCTM
--- NOTE | 2019-09-28 10:26 | NUR ---
SPOKE WITH PT ABOUT SPEAKING TO DAUGHTER DENNIS. SPEAKING WITH HER DAUGHTER NOW. CL IN REACH. WCTM
[2019-09-28 10:38] VITALS: Ht 162.6 cm; Wt 73.4 kg
[2019-09-28 13:43] VITALS: BP 109/66
[2019-09-28 17:00] VITALS: BP 186/87
--- NOTE | 2019-09-28 17:00 | NUR ---
Domonique MARLEY LINE OUT MAN CALLED [facility] FOR [place] NECK BRACE. PATIENT HAS NOT RECIEVED YET.
--- NOTE | 2019-09-28 17:30 | NUR ---
JUAN WITH [facility] HERE TO FIX [place] NECK BRACE ON PATIENT. NO PAPERWORK AVAILABLE TO SIGN.
[2019-09-28 20:00] VITALS: BP 180/75
[2019-09-29] VITALS: BP 142/67
[2019-09-29 04:00] VITALS: BP 189/74
[2019-09-29 04:17] LABS: BASOPHILS 0.1 % (0-2); EOSINOPHILS 2.2 % (0-7); HEMATOCRIT 34.8 % (36.0-48.0); HEMOGLOBIN 9.1 g/dL (12-16); IMMATURE GRANULOCYTES 0.2 % (0-5); LYMPHOCYTES 16.9 % (15-50); MCH 20.2 pg (26.0-34.0); MCHC 26.1 g/dL (31.0-37.0); MCV 77.3 fL (80.0-100.0); MEAN PLATELET VOLUME 10.3 fL (7.4-10.4); NEUTROPHILS 72.6 % (40-80); PLATELET COUNT 242 10x3/uL (130-400); RDW 19.1 % (11.5-14.5); WBC 8.8 10x3/uL (4.8-10.8)
[2019-09-29 04:40] LABS: INR 1.04 (0.85-1.17); PROTIME 13.5 SECONDS (11.6-15.0)
[2019-09-29 04:55] LABS: ANION GAP 4.8 mmol/L (8-16); CALCIUM 8.9 mg/dL (8.5-10.1); CARBON DIOXIDE 38.9 mmol/L (21.0-32.0); CREATININE - SERUM 0.8 mg/dL (0.6-1.3); MAGNESIUM - SERUM 1.8 mg/dL (1.8-2.4); PHOSPHOROUS 3.8 mg/dL (2.5-4.9); POTASSIUM - SERUM 3.7 mmol/L (3.5-5.1)
--- NOTE | 2019-09-29 08:00 | NUR ---
AWAKE AND ORIENTED TO SELF ONLY. FALL PRECAUTIONS IN PLACE. CERVICAL COLLAR INTACT WITH GOOD ROM. INCONT OF BLADDER AT TIMES. IV LEFT F/A WITH NO S/S OF INFECTION/INFILTRATION. LUNGS CTA AND HRRR. ENCOURAGED TO USE CALL LIGHT FOR ASSSIT.
[2019-09-29 08:46] VITALS: BP 120/66
[2019-09-29 12:30] VITALS: BP 156/76
--- NOTE | 2019-09-29 15:13 | MORECARE ---
CASE MANAGEMENT DISCHARGE SUMMARY PATIENT: ADÁN SUAREZ UNIT: [id number] ADM DATE: 09/27/19 AGE: 84 : 37 SEX: F ROOM/BED: D.2201 AUTHOR: ELVER TURPIN PHYSICIAN: REFERRING PHYSICIAN: GOLDIE DUPREE MD DATE OF SERVICE: 09/29/19 Discharge Plan Patient Name: ADÁN SUAREZ [facility] [facility] 1935 Planned Disposition: [facility] Facility Anticipated Discharge Date: Discharge Date: Expected LOS: Initial Reviewer: [email or web address] Initial Review Date: 09/27/2019 Generated: 09/29/19 4:13 pm External Providers External Provider: [facility] Next Contact Date: Service Request Date: Service Type: Resolution: Reviewer: Comments: Patient Name: ADÁN SUAREZ Page 56911 at 1513 All edits/amendments must be made on the electronic document DICTATION DATE: 09/29/19 1513 REGISTRATION SPECIALIST: DEE 09/29/19 1513 RPT#: [id number] DC DATE: STATUS: ADM IN [facility] [address] [place] [address] END OF REPORT
--- NOTE | 2019-09-29 15:21 | MORECARE ---
CASE MANAGEMENT DISCHARGE SUMMARY PATIENT: ADÁN SUAREZ UNIT: [id number] ADM DATE: 09/27/19 AGE: 84 : 37 SEX: F ROOM/BED: D.2201 AUTHOR: ELVER TURPIN PHYSICIAN: REFERRING PHYSICIAN: GOLDIE DUPREE MD DATE OF SERVICE: 09/29/19 Discharge Plan Patient Name: ADÁN SUAREZ [facility] [facility] 1935 Planned Disposition: Penitentiary Facility Anticipated Discharge Date: Discharge Date: Expected LOS: Initial Reviewer: [email or web address] Initial Review Date: 09/27/2019 Generated: 09/29/19 4:21 pm Comments DCP- Discharge Planning Updated by [email or web address]: Rica Simons on 09/29/19 2:[address] IF PATIENT IS STABLE TO D/C [facility] WILL ACCEPT HER BACK OVER THE WEEKEND PER ANGELINE Nair DP export: 09/29/19 2:13 pm Patient Name: ADÁN SUAREZ Page [id number] at 1521 All edits/amendments must be made on the electronic document DICTATION DATE: 09/29/19 152 FIELD CONSULTANT: DEE 09/29/19 152 RPT#: [id number] DC DATE: STATUS: ADM IN [facility] [address] [place] [address] END OF REPORT
[2019-09-29 17:25] VITALS: BP 147/69
[2019-09-29 20:41] VITALS: BP 138/53
--- NOTE | 2019-09-30 02:16 | NUR ---
I have reviewed this patient and I concur with the Shift Assessment completed by the Licensed Practical Nurse today this shift.
[2019-09-30 04:00] VITALS: BP 198/75
[2019-09-30 07:17] LABS: CALC OSMOLALITY 287 mosm/kg (275-300); CALCIUM 8.9 mg/dL (8.5-10.1); CHLORIDE - SERUM 104 mmol/L (98-107); CREATININE - SERUM 0.6 mg/dL (0.6-1.3); GLUCOSE 85 mg/dL (74-106); MAGNESIUM - SERUM 1.9 mg/dL (1.8-2.4); PHOSPHOROUS 3.7 mg/dL (2.5-4.9); POTASSIUM - SERUM 4.1 mmol/L (3.5-5.1); SODIUM 144 mmol/L (136-145); UREA NITROGEN 17 mg/dL (7-18); eGFR NON AFRICAN AMERICAN > 90 mL/min (90-120)
--- NOTE | 2019-09-30 08:17 | NUR ---
resting in bed, no distress noted, cervical collar in place, cont to monitor pain and labs this am
[2019-09-30 08:45] LABS: BASOPHILS 0.1 % (0-2); EOSINOPHILS 2.2 % (0-7); HEMATOCRIT 35.3 % (36.0-48.0); HEMOGLOBIN 9.3 g/dL (12-16); IMMATURE GRANULOCYTES 0.2 % (0-5); LYMPHOCYTES 17.9 % (15-50); MCH 20.4 pg (26.0-34.0); MCHC 26.3 g/dL (31.0-37.0); MCV 77.2 fL (80.0-100.0); MEAN PLATELET VOLUME 10.1 fL (7.4-10.4); MONOCYTES 6.2 % (2-11); NEUTROPHILS 73.4 % (40-80); PLATELET COUNT 237 10x3/uL (130-400); RBC 4.57 10x6/uL (4.00-5.40); RDW 19.5 % (11.5-14.5); WBC 8.1 10x3/uL (4.8-10.8)
[2019-09-30 09:31] VITALS: BP 153/60
[2019-09-30 13:37] VITALS: BP 151/66
[2019-09-30 17:25] VITALS: BP 123/63
[2019-09-30 20:00] VITALS: BP 150/78
[2019-10-01 01:08] VITALS: BP 148/80
--- NOTE | 2019-10-01 01:34 | NUR ---
I have reviewed this patient and I concur with the Shift Assessment completed by the Licensed Practical Nurse today this shift.
[2019-10-01 04:00] VITALS: BP 152/85
[2019-10-01 06:11] LABS: HEMATOCRIT 36.3 % (36.0-48.0); HEMOGLOBIN 9.7 g/dL (12-16); MCH 20.7 pg (26.0-34.0); MCHC 26.7 g/dL (31.0-37.0); MCV 77.6 fL (80.0-100.0); MEAN PLATELET VOLUME 10.1 fL (7.4-10.4); PLATELET COUNT 239 10x3/uL (130-400); RBC 4.68 10x6/uL (4.00-5.40); RDW 20.1 % (11.5-14.5); WBC 8.1 10x3/uL (4.8-10.8)
[2019-10-01 06:27] LABS: CALC OSMOLALITY 287 mosm/kg (275-300); CHLORIDE - SERUM 103 mmol/L (98-107); CREATININE - SERUM 0.7 mg/dL (0.6-1.3); GLUCOSE 97 mg/dL (74-106); MAGNESIUM - SERUM 1.9 mg/dL (1.8-2.4); PHOSPHOROUS 3.5 mg/dL (2.5-4.9); POTASSIUM - SERUM 3.5 mmol/L (3.5-5.1); SODIUM 144 mmol/L (136-145); UREA NITROGEN 14 mg/dL (7-18); eGFR NON AFRICAN AMERICAN 85 mL/min (90-120)
[2019-10-01 06:36] LABS: CARBON DIOXIDE 40.1 mmol/L (21.0-32.0)
--- NOTE | 2019-10-01 08:17 | NUR ---
RESTING IN BED, NO DISTRESS NOTED, EYES CLOSED, CERVICAL COLLAR IN PLACE, CONT TO MONITOR SAFETY, DC ORDERS ON CHART
[2019-10-01 08:28] VITALS: BP 178/98
[2019-10-01 09:19] LABS: LYMPHOCYTES 16 % (15-50); MONOCYTES 6 % (2-11); NEUTROPHILS 78 % (40-80); PLATELET ESTIMATE NORMAL
[2019-10-01 09:20] LABS: ROULEAUX OCC
--- NOTE | 2019-10-01 11:33 | NUR ---
REPORT CALLED TO WILLY AT [facility], PT TO WEAR CERVICAL COLLAR FOR 12 WEEKS, THEY WILL CALL ME WITH A KNIT TUBING DYER TIME
--- NOTE | 2019-10-01 11:46 | NUR ---
DC IV, TIP INTACT
--- NOTE | 2019-10-01 13:00 | NUR ---
TAKEN FROM HOSPITAL PER W/C WITH TRANSPORTER
--- NOTE | 2019-10-01 14:09 | MORECARE ---
CASE MANAGEMENT DISCHARGE SUMMARY PATIENT: ADÁN SUAREZ UNIT: [id number] ADM DATE: 09/27/19 AGE: 84 : 37 SEX: F ROOM/BED: D.2201 AUTHOR: ELVER TURPIN PHYSICIAN: REFERRING PHYSICIAN: GOLDIE DUPREE MD DATE OF SERVICE: 10/01/19 Discharge Plan Patient Name: ADÁN SUAREZ [facility] [facility] 1935 Planned Disposition: Jail Facility Anticipated Discharge Date: Discharge Date: 10/01/2019 Expected LOS: Initial Reviewer: [email or web address] Initial Review Date: 09/27/2019 Generated: 10/01/19 3:08 pm Comments DCP- Discharge Planning Updated by [email or web address]: Maria Luz Nettles on 10/01/19 1:[address] Patient discharged to a skilled bed at [facility], via their van. DCP- Discharge Planning Updated by [email or web address]: Rica Simons on 09/29/19 2:[address] IF PATIENT IS STABLE TO D/C [facility] WILL ACCEPT HER BACK OVER THE WEEKEND PER ANGELINE CAMACHO export: 09/29/19 2:21 pm Patient Name: ADÁN SUAREZ Page [id number] at 1409 All edits/amendments must be made on the electronic document DICTATION DATE: 10/01/19 1408 ELECTROMECHANICAL EQUIPMENT TESTER: DEE 10/01/19 1408 RPT#: [id number] DC DATE:10/01/19 STATUS: DIS IN [facility] [address] [place] [address] END OF REPORT
--- NOTE | 2019-10-01 14:24 | MORECARE ---
CASE MANAGEMENT DISCHARGE SUMMARY PATIENT: ADÁN SUAREZ UNIT: [id number] ADM DATE: 09/27/19 AGE: 84 : 37 SEX: F ROOM/BED: D.2201 AUTHOR: ELVER TURPIN PHYSICIAN: REFERRING PHYSICIAN: GOLDIE DUPREE MD DATE OF SERVICE: 10/01/19 Discharge Plan Patient Name: ADÁN SUAREZ [facility] [facility] 1935 Planned Disposition: Senior Living Facility Anticipated Discharge Date: 10/01/19 Discharge Date: 10/01/2019 Expected LOS: 4 Initial Reviewer: [email or web address] Initial Review Date: 09/27/2019 Generated: 10/01/19 3:23 pm Comments DCP- Discharge Planning Updated by [email or web address]: Maria Luz Nettles on 10/01/19 1:[address] Patient discharged to a skilled bed at [facility], via their van. DCP- Discharge Planning Updated by [email or web address]: Rica Simons on 09/29/19 2:[address] IF PATIENT IS STABLE TO D/C [facility] WILL ACCEPT HER BACK OVER THE WEEKEND PER ANGELINE CAMACHO export: 10/01/19 1:09 pm Patient Name: ADÁN SUAREZ Page 13852 at 1424 All edits/amendments must be made on the electronic document DICTATION DATE: 10/01/19 1423 LOCAL AREA NETWORK ADMINISTRATOR: DEE 10/01/19 1423 RPT#: [id number] DC DATE:10/01/19 STATUS: DIS IN [facility] [address] [place] [address] END OF REPORT
--- NOTE | 2019-10-02 09:40 | MORECARE ---
CASE MANAGEMENT DISCHARGE SUMMARY PATIENT: ADÁN SUAREZ UNIT: [id number] ADM DATE: 09/27/19 AGE: 84 : 37 SEX: F ROOM/BED: D.2201 AUTHOR: ELVER TURPIN PHYSICIAN: REFERRING PHYSICIAN: GOLDIE DUPREE MD DATE OF SERVICE: 10/02/19 Discharge Plan Patient Name: ADÁN SUAREZ [facility] [facility] 1935 Planned Disposition: Group Home Facility Anticipated Discharge Date: 10/01/19 Discharge Date: 10/01/2019 Expected LOS: 4 Initial Reviewer: [email or web address] Initial Review Date: 09/27/2019 Generated: 10/02/19 10:39 am Comments DCP- Discharge Planning Updated by [email or web address]: Maria Luz Nettles on 10/01/19 1:[address] Patient discharged to a skilled bed at [facility], via their van. DCP- Discharge Planning Updated by [email or web address]: Rica Simons on 09/29/19 2:[address] IF PATIENT IS STABLE TO D/C [facility] WILL ACCEPT HER BACK OVER THE WEEKEND PER ANGELINE CAMACHO export: 10/01/19 1:24 pm Patient Name: ADÁN SUAREZ Page 21170 at 0940 All edits/amendments must be made on the electronic document DICTATION DATE: 10/02/19938 HVAC ENGINEER: DEE 10/02/19 0939 RPT#: [id number] DC DATE:10/01/19 STATUS: DIS IN [facility] [address] [place] [address] END OF REPORT
== END 2019-10-01 13:00 | DRG 552 ==
LOC: D.ER 18:27 → D.MS 21:47
PROVIDERS: Family Medicine; ADMIT Family Medicine; ATTEND Family Medicine
DX: S12.100A Unspecified displaced fracture of second cervical vertebra, initial encounter for closed fracture (principal); F17.203 Nicotine dependence unspecified, with withdrawal; W19.XXXA Unspecified fall, initial encounter; I65.29 Occlusion and stenosis of unspecified carotid artery; D64.9 Anemia, unspecified; I10 Essential (primary) hypertension; E78.5 Hyperlipidemia, unspecified; K21.9 Gastro-esophageal reflux disease without esophagitis; F03.90 Unspecified dementia, unspecified severity, without behavioral disturbance, psychotic disturbance, mood disturbance, and anxiety; F32.9 Major depressive disorder, single episode, unspecified; E87.6 Hypokalemia; J44.9 Chronic obstructive pulmonary disease, unspecified; K11.8 Other diseases of salivary glands; Z86.73 Personal history of transient ischemic attack (TIA), and cerebral infarction without residual deficits

== ENCOUNTER 2019-11-14 07:51 | Emergency (ER) | payer MEDICARE, BC ==
[~2019-11-14] VITALS: Ht 162.6 cm; Wt 76.4 kg
[~2019-11-14 07:51] MED LIST changes: +ASCORBIC ACID500 MG PO; +ATIVAN0.5 MG PO; +BUMEX2 MG PO; +COLACE100 MG PO; +EFFEXOR25 MG PO; +FERROUS SULFAT325 MG PO; +INDERAL 40 MG T40 MG PO; +K-TAB10 MEQ PO; +NAPROSYN500 MG PO; +NICODERM CQ1 EAC3 TOPICAL; +VITAMIN D1000 UNIT PO
[2019-11-14 08:11] VITALS: Ht 162.6 cm; Wt 76.4 kg
[2019-11-14] MEDS ORDERED: PLAVIX75 MG PO (08:18)
[2019-11-14] MEDS ORDERED: HYDROCODON-ACE1 EAC7 PO (09:47)
[2019-11-14 12:05] VITALS: BP 159/49
== END 2019-11-14 12:05 ==
LOC: D.ER 07:51
DX: S42.301A Unspecified fracture of shaft of humerus, right arm, initial encounter for closed fracture (principal); S82.001A Unspecified fracture of right patella, initial encounter for closed fracture; U07.1 COVID-19; Z86.73 Personal history of transient ischemic attack (TIA), and cerebral infarction without residual deficits; K21.9 Gastro-esophageal reflux disease without esophagitis; I10 Essential (primary) hypertension; W05.0XXA Fall from non-moving wheelchair, initial encounter; Y93.9 Activity, unspecified; Y92.9 Unspecified place or not applicable

== ENCOUNTER 2020-08-11 16:59 | Emergency (ER) | payer MEDICARE, BC ==
[~2020-08-11] VITALS: Ht 162.6 cm; Wt 84.1 kg
[~2020-08-11 16:59] MED LIST changes: +HYDROCODON-ACE1 EAC7 PO
[2020-08-11 17:01] VITALS: Ht 162.6 cm; Wt 84.1 kg
[2020-08-11 18:13] LABS: BASOPHILS 0.1 % (0-2); EOSINOPHILS 2.2 % (0-7); HEMATOCRIT 43.6 % (36.0-48.0); HEMOGLOBIN 13.2 g/dL (12-16); IMMATURE GRANULOCYTES 0.2 % (0-5); LYMPHOCYTE ABS# 1.72 10x3/uL (1.18-3.74); LYMPHOCYTES 20.6 % (15-50); MCH 27.7 pg (26.0-34.0); MCHC 30.3 g/dL (31.0-37.0); MCV 91.4 fL (80.0-100.0); MONOCYTES 8.4 % (2-11); NEUTROPHILS 68.5 % (40-80); PLATELET COUNT 184 10x3/uL (130-400); RBC 4.77 10x6/uL (4.00-5.40); RDW 14.7 % (11.5-14.5); WBC 8.3 10x3/uL (4.8-10.8)
[2020-08-11 18:21] LABS: ANION GAP 10.1 mmol/L (8-16); APTT 27.7 SECONDS (22.8-39.4); CALCIUM 8.6 mg/dL (8.5-10.1); CREATININE - SERUM 0.9 mg/dL (0.6-1.3); INR 1.09 (0.85-1.17); POTASSIUM - SERUM 4.1 mmol/L (3.5-5.1)
[2020-08-11 18:27] LABS: ALBUMIN 2.8 g/dL (3.4-5.0); BILIRUBIN - TOTAL 0.34 mg/dL (0.2-1.3); PROTEIN - SERUM 6.6 g/dL (6.4-8.2)
[2020-08-11 18:46] VITALS: BP 166/80
== END 2020-08-11 18:48 | disposition other institution (70) ==
LOC: D.ER 16:59
PROVIDERS: Family Medicine
DX: S12.100A Unspecified displaced fracture of second cervical vertebra, initial encounter for closed fracture (principal); S09.90XA Unspecified injury of head, initial encounter; W01.10XA Fall on same level from slipping, tripping and stumbling with subsequent striking against unspecified object, initial encounter; Y93.9 Activity, unspecified; Y92.9 Unspecified place or not applicable; Z86.73 Personal history of transient ischemic attack (TIA), and cerebral infarction without residual deficits; I10 Essential (primary) hypertension; F03.90 Unspecified dementia, unspecified severity, without behavioral disturbance, psychotic disturbance, mood disturbance, and anxiety; K21.9 Gastro-esophageal reflux disease without esophagitis